=== PATIENT | male | born 1975 | race Hispanic/Latino ===

== ENCOUNTER → 2018-07-12 | Outpatient (CLI) | payer OTHER ==
--- NOTE | 2018-07-12 14:54 | Diagnostic Imaging Report ---
LEFT GREAT TOE - 3 VIEWS HISTORY: Pain, reportedly pus under nail COMPARISON: None available. FINDINGS: Bones: No acute displaced fracture. Osseous alignment is within normal limits. Joints: The joint spaces are well-maintained. Soft tissues: Mild nonspecific soft tissue swelling. IMPRESSION: No radiographic evidence of osteomyelitis. Signed by: Dr. Davi Cody D.O., M.M.M. on 07/12/2018 2:51 PM
== END ==
LOC: RAD 13:47
PROVIDERS: ATTEND Internal Medicine
DX: M79.675 Pain in left toe(s) (principal)